=== PATIENT | female | born 1940 | race Caucasian/White ===

== ENCOUNTER 2020-12-03 00:55 | Day surgery (SDC) | payer MEDICARE, SELFPAY ==
[2020-11-25 18:24] VITALS: BMI 22.4
[2020-12-03 06:14] VITALS: BP 164/75; PULSE 73; RESP 20; TEMP 36.6; O2SAT 96
[2020-12-03] MEDS: LACTATED RINGERS 1,000 ML 30 ML IV CONT ×2 (06:45→09:35)
--- NOTE | 2020-12-03 07:03 | WPDANESEPPF ---
Anes - Initial Pre Proc Eval Procedure: Operation Date: 12/03/20 07:30 Proposed Procedures p Excision Ulcerated Nodular Neoplasm Right Nasal Lobule With Frozen Section With Full Thickness Skin Graft Or Local Tissue Transfer - Isaiah Son MD Date/Time: 12/03/20 07:03 Surgeon: Isaiah Son MD Pre Op Diagnosis: Ulcer Nodular Neoplasm Right Nasal Lobule Patient Data Age: 80 Gender: F Height: 1.55 m Weight: 53.98 kg Allergies Allergy/AdvReac Type Severity Reaction Status Date / Time Sulfa (Sulfonamide AdvReac Intermediate VOMITING Verified 11/25/20 18:18 Antibiotics) CHILD Home Medications Medication Instructions Recorded Confirmed Type alendronate 70 mg PO WEEKLY 11/25/20 12/03/20 History aspirin [Adult Low Dose Aspirin] 81 mg PO DAILY 11/25/20 12/03/20 History simvastatin 20 mg PO HS 11/25/20 12/03/20 History Patient hx anesthesia problems: none Family hx anesthesia problems: none PMFSH Past Medical History Medical History (Updated 12/03/20 @ 07:03 by Balaji Valencia MD) Hyperlipidemia PVD (peripheral vascular disease) Surgical History Surgical History (Updated 12/03/20 @ 07:04 by Balaji Valencia MD) History of section S/P carotid endarterectomy Social History Social History Smoking packs per day: 0.5 Smoking cigarettes per day: 10.0 Years smoked: 63 Smoking pack-years: 31.50 Smoking status: Current every day smoker Tobacco type: cigarettes Second hand tobacco smoke exposure: Yes Alcohol intake: current Alcohol use details: GLASS OF WINE 1X/MONTH Substance use: never Living arrangements: alone Spiritual care concerns: No Anes - Eval Final PreProcedure Day of Procedure 12/03/20 07:03 Patient weight: normal Heart: regular rate and rhythm Lungs: clear to auscultation Airway: Mallampati scale class II Neurological: alert and oriented ASA classification: III Emergent: no Anesthetic plan: proceed Anesthesia type and monitoring: general GIVS and standard monitoring Informed Consent: The patient's anesthetic plan and its attendant risks and benefits were discussed with the patient/family/POA. Questions were solicited and answers provided to the satisfaction of the patient/family/POA.
--- NOTE | 2020-12-03 07:14 | WPDHPUPDATE1 ---
History and Physical Update Update Date/Time: 12/03/20 07:14 History and Physical has been reviewed, including an updated exam of the patient. There are NO changes in the patient's condition. Risks, benefits, and alternatives have been discussed and questions answered. Patient agrees to proceed with procedure.
[2020-12-03] MEDS: LIDO 1%/EPINEPHRINE 1:100,000 20 ML VIAL INFILTRATE (07:29)
[2020-12-03] MEDS: BACITRACIN OINTMENT 15 GM TUBE 1 APPLIC TOPICAL (07:29)
[2020-12-03 09:35] VITALS: BP 111/62; PULSE 67; RESP 16; O2SAT 96
--- NOTE | 2020-12-03 09:46 | PM.OP ---
Procedure Note - Brief Procedure Note - Brief Date of procedure: 12/03/20 Pre-op diagnosis: Ulcer Nodular Neoplasm Right Nasal Lobule Post-op diagnosis: other (BCC) Procedure performed: 1 cm excision of BCC with FS and LTT 3 sq cm. Anesthesia: MAC Surgeon: Isaiah Son MD [address] Court Magistrate: myah Estimated blood loss (mL): 2 Drains: No Packing: No Pathology: yes Condition: stable Disposition: same day
[2020-12-03 10:05] VITALS: BP 119/65; PULSE 68; RESP 16; O2SAT 96
[2020-12-03 10:30] VITALS: BP 150/64; PULSE 64; RESP 16
--- NOTE | 2020-12-03 11:42 | W.PM.PROC2 ---
Procedure Note - Detailed Date of Procedure 12/03/20 Pre-op Diagnosis Ulcer Nodular Neoplasm Right Nasal Lobule Post-op Diagnosis other ( basal cell carcinoma) Procedure Performed 1 cm excision of basal cell carcinoma of the right nasal lobule with frozen section and bilobed local tissue transfer 3 sq cm Surgeon Isaiah Son MD [employer] Maintainer [employer]gor Anesthesia MAC Indications nodular ulcerated growth of the nose Description of Procedure the site was marked on the patient's nose in the holding area. She was taken to the operating room and placed supine on the operating table. A time-out was held and confirmed. She was given IV sedation and the face was prepped and draped in usual fashion. The site was carefully marked for an excision open to clear the margins. The area was infiltrated with 1% lidocaine with epinephrine. The incision was made and the full-thickness skin specimen was taken out with a marking at the 12:00 p.m. point which was at the nasal tip. The specimen was sent to pathology. The pathologist read field that the lesion is a basal cell carcinoma but the 6 did 11:00 a.m. margin was positive. An additional crescent of tissue was taken off that side including the 5-12 o'clock area with a suture marking the new 11:00 a.m. point. This tissue was sent to pathology. the pathologist reports all margins were free. A bilobed flap was designed on the right side of the nose incised and elevated. It was inset and the donor area closed with 4-0 intradermal Vicryl and a running and interrupted 5 0 nylon sutures. This did not distort the nose. There was no bleeding at that point. Antibiotic ointment was applied. The patient was discharged from the operating room stable condition. She is being discharged home with a prescription for cephalexin 500 mg b.i.d. 10. . She also has a prescription for tramadol 50 mg 8. Estimated Blood Loss 2 Drains No Packing No Pathology yes Complications No immediate complications Condition stable Disposition same day
== END 2020-12-03 10:35 | disposition home or self-care (01) ==
PROVIDERS: PCP Internal Medicine; Visit Provider Plastic Surgery
PROC: (CPT 14060; principal; 2020-12-03 07:30)
DX: C44.311 Basal cell carcinoma of skin of nose (principal); E78.5 Hyperlipidemia, unspecified; I73.9 Peripheral vascular disease, unspecified; Z79.82 Long term (current) use of aspirin; F17.210 Nicotine dependence, cigarettes, uncomplicated
CPT/HCPCS: 14060; 88305; 88331; A9270; J2704; J3010; J7120